=== PATIENT | male | born 1995 | race Caucasian/White ===

== ENCOUNTER 2025-10-02 15:26 | Emergency (ER) | payer OTHER ==
[~2025-10-02] VITALS: Ht 182.9 cm; Wt 82.0 kg
[2025-10-02 15:28] VITALS: BP 132/82; PULSE 129; RESP 20; TEMP 98; O2SAT 99
== END 2025-10-02 16:15 | disposition left against medical advice (07) ==
LOC: ER 15:26
DX: F15.129 Other stimulant abuse with intoxication, unspecified (principal); F17.200 Nicotine dependence, unspecified, uncomplicated; R30.0 Dysuria; Z79.899 Other long term (current) drug therapy
CPT/HCPCS: 93005; 99283